=== PATIENT | male | born 1990 | race Two or more races ===

== ENCOUNTER 2022-05-13 10:54 | Inpatient (IN) | payer MEDICAID, OTHER ==
[~2022-05-13] VITALS: Ht 175.3 cm; Wt 63.5 kg
--- NOTE | 2022-05-13 11:05 | NUR ---
YUE SNYDER Escorted by Officer Ch[place] [id number] from [facility] "Abdominal Pain xcouple days". AMBULATORY, PLACED ON BED.
--- NOTE | 2022-05-13 11:15 | NUR ---
[employer] OFFICER AT BEDSIDE
[2022-05-13 11:18] LABS: BASOPHILS % (AUTO) 0.1 % (0.0-2.0); EOSINOPHILS % (AUTO) 0.5 % (0.0-6.0); HEMATOCRIT 50 % (39-51); HEMOGLOBIN 16.4 g/dL (13.5-17.5); LYMPHOCYTES % (AUTO) 9.9 % (20.0-44.0); MEAN CORPUSCULAR HGB CONC 33 g/dl (31.0-36.0); MEAN CORPUSCULAR VOLUME 94 fL (80-96); MONOCYTES # (AUTO) 0.5 K/uL (0.1-1.30); MONOCYTES % (AUTO) 4.7 % (2.0-12.0); NEUTROPHILS # (AUTO) 8.9 K/uL (1.8-8.9); NEUTROPHILS % (AUTO) 84.8 % (43.0-81.0); PLATELET COUNT (AUTO) 285 K/uL (150-450); RED BLOOD CELL COUNT(AUTO) 5.29 MIL/uL (4.5-6.0); WHITE BLOOD COUNT (AUTO) 10.5 K/uL (4.3-11.0)
[2022-05-13 11:31] LABS: CALCIUM, SERUM 9.4 mg/dL (8.5-10.1); CREATININE 0.9 mg/dL (0.6-1.3); POTASSIUM 4.8 mmol/L (3.5-5.1)
[2022-05-13 11:35] LABS: ALBUMIN 4.1 g/dL (3.4-5.0); BILIRUBIN,DIRECT 0.1 mg/dL (0.0-0.2); BILIRUBIN,TOTAL 0.4 mg/dL (0.2-1.0); TOTAL PROTEIN, SERUM 8.4 g/dL (6.4-8.2)
--- NOTE | 2022-05-13 11:52 | NUR ---
URINE SAMPLE SENT TO LAB
[2022-05-13] MEDS ORDERED: IV NS 0.9% 250 ML IV ONE (12:03)
[2022-05-13] MEDS ORDERED: IOHEXOL-300 100 ML VIAL IV ONE (12:03)
--- NOTE | 2022-05-13 12:15 | NUR ---
PATIENT TAKEN TO CT VIA JAY
[2022-05-13 12:55] LABS: BILIRUBIN,URINE NEGATIVE (NEGATIVE); COLOR,URINE YELLOW (YELLOW); LEUKOCYTE ESTERASE ,URINE NEGATIVE (NEGATIVE); NITRITE, URINE NEGATIVE (NEGATIVE); PH,URINE 5.5 (5.0-8.0); PROTEIN,URINE NEGATIVE (NEGATIVE); UGLUCOSE NEGATIVE (NEGATIVE); UROBILINOGEN,URINE 0.2 EU/dL (0.2)
[2022-05-13 13:08] LABS: BACTERIA,URINE Few /HPF (None Seen)
--- NOTE | 2022-05-13 13:09 | NUR ---
SWAB FOR COVID19 SENT TO LAB
--- NOTE | 2022-05-13 13:11 | NUR ---
MOVE SHEET SUBMITTED.
--- NOTE | 2022-05-13 13:25 | NUR ---
CALLED [facility], DR. LAIRD ON-CALL. AWAITING FOR CALL BACK.
[2022-05-13] MEDS ORDERED: IV NS 0.9% 1,000 ML BAG IV ONE (13:30)
[2022-05-13] MEDS ORDERED: DIATR MEGLU/DIATRIZOATE SODIUM 120 ML BOTTLE (GASTROGRAPHIN) ONE (13:46)
--- NOTE | 2022-05-13 14:00 | NUR ---
REPORT GIVEN TO LUCIE LANDA ROOM 320-1 FOR KATY
--- NOTE | 2022-05-13 15:00 | NUR ---
MS RN ADMITTING NOTES RECEIVED PATIENT FROM ER VIA GURNEY ACCOMPANIED BY 2 OFFICERS DUE TO PATIENT CURRENTLY IN CUSTODY. SALINE LOCK IN PLACE CLEAN, INTACT, AND FLUSHING WELL. NO COMPLAINTS OF PAIN OR DISCOMFORT, TOLERATING WELL ON ROOM AIR. SAFETY MEASURES IN PLACE: BED IN LOWEST LOCKED POSITION, SIDE RAILS UP X 2, CALL LIGHT WITHIN REACH. WILL CONTINUE TO MONITOR.
[2022-05-13] MEDS ORDERED: ONDANSETRON HCL/PF 4 MG/2 ML VIAL IVP PRN (15:30)
[2022-05-13] MEDS ORDERED: IV NS 0.9% 1,000 ML IV PRN (15:30)
[2022-05-13] MEDS ORDERED: PEG 3350/NA SULF,BICARB,CL/KCL 4,000 ML BOTTLE PO ONE (15:30)
[2022-05-13] MEDS ORDERED: KETOROLAC TROMETHAMINE INJ 30 MG/ML VIAL IV PRN (15:30)
[2022-05-13 16:00] VITALS: BP 125/93
--- NOTE | 2022-05-13 19:00 | NUR ---
MS RN CLOSING NOTES PATIENT LAYING IN BED, A/O X 4, ABLE TO MAKE NEEDS KNOWN, TOLERATING WELL ON ROOM AIR WITH NO S/S RESPIRATORY DISTRESS. NO COMPLAINTS OF PAIN OR DISCOMFORT AT THIS TIME. IV IN PLACE WITH NS INFUSING @ 75 ML/HR. SAFETY MEASURES IN PLACE: BED IN LOWEST LOCKED POSITION, SIDE RAILS UP X 2, CALL LIGHT WITHIN REACH. ALL NEEDS MET. WILL ENDORSE TO WRITER EDITOR FOR KATY.
--- NOTE | 2022-05-13 19:37 | NUR ---
MS RN OPENING NOTES RECEIVED PATIENT LYING AWAKE IN BED, A/O X3. ACCOMPANIED BY 2 OFFICERS DUE TO PATIENT CURRENTLY IN CUSTODY. PATIENT WAS HANDCUFFED (LEFT) TO BED SIDE RAIL. ON ROOM AIR, BREATHING EVEN AND UNLABORED. NO SIGNS OF RESPIRATORY DISTRESS. IV ACCESS AT [facility] AC #20, INFUSING NS @75ML/HR, INFUSING WELL. NO COMPLAINTS OF PAIN OR DISCOMFORT. SAFETY MEASURES IN PLACE: BED IN LOWEST LOCKED POSITION, SIDE RAILS UP X 2, CALL LIGHT WITHIN REACH. WILL CONTINUE TO MONITOR.
[2022-05-13 20:00] VITALS: BP 108/72
--- NOTE | 2022-05-14 00:33 | NUR ---
RN NOTES PATIENT IS COMPLAINING OF PAIN AT LOWER ABDOMEN, RATED PAIN SCALE 10/10. DESCRIBES PAIN SHARP AND ACHING, GUARDING SITE OF PAIN. GIVEN TORADOL 15MG IV. WILL CONTINUE TO MONITOR.
[2022-05-14 07:00] VITALS: BP 115/87
[2022-05-14 07:39] LABS: BASOPHILS % (AUTO) 0.2 % (0.0-2.0); EOSINOPHILS % (AUTO) 1.5 % (0.0-6.0); HEMATOCRIT 44 % (39-51); LYMPHOCYTES # (AUTO) 1.6 K/uL (0.8-4.8); MEAN CORPUSCULAR HGB CONC 34 g/dl (31.0-36.0); MEAN CORPUSCULAR VOLUME 93 fL (80-96); MONOCYTES # (AUTO) 0.3 K/uL (0.1-1.30); MONOCYTES % (AUTO) 4.4 % (2.0-12.0); NEUTROPHILS # (AUTO) 5.3 K/uL (1.8-8.9); NEUTROPHILS % (AUTO) 71.9 % (43.0-81.0); PLATELET COUNT (AUTO) 278 K/uL (150-450); RED BLOOD CELL COUNT(AUTO) 4.77 MIL/uL (4.5-6.0); WHITE BLOOD COUNT (AUTO) 7.4 K/uL (4.3-11.0)
--- NOTE | 2022-05-14 07:48 | NUR ---
MS RN CLOSING NOTES PATIENT LYING IN BED, A/O X 4, ABLE TO MAKE NEEDS KNOWN, TOLERATING WELL ON ROOM AIR WITH NO S/S RESPIRATORY DISTRESS. NO COMPLAINTS OF PAIN OR DISCOMFORT AT THIS TIME. IV IN PLACE WITH NS INFUSING @ 75 ML/HR. SAFETY MEASURES IN PLACE: BED IN LOWEST LOCKED POSITION, SIDE RAILS UP X 2, CALL LIGHT WITHIN REACH. ALL NEEDS MET. WILL ENDORSE TO LOCKSTITCH COLLAR SETTER FOR KATY.
[2022-05-14 07:58] LABS: CALCIUM, SERUM 8.5 mg/dL (8.5-10.1); CREATININE 0.6 mg/dL (0.6-1.3); MAGNESIUM 2.4 mg/dL (1.8-2.4); PHOSPHORUS 3.2 mg/dL (2.5-4.9); POTASSIUM 4.2 mmol/L (3.5-5.1)
[2022-05-14] MEDS ORDERED: PANTOPRAZOLE 40 MG VIAL IV SCH (09:00)
--- NOTE | 2022-05-14 10:07 | NUR ---
MS RN OPENING NOTES RECEIVED PATIENT LYING AWAKE IN BED, A/O X3. ACCOMPANIED BY 2 OFFICERS DUE TO PATIENT CURRENTLY IN CUSTODY. PATIENT WAS HANDCUFFED (LEFT) TO BED SIDE RAIL. ON ROOM AIR, BREATHING EVEN AND UNLABORED. NO SIGNS OF RESPIRATORY DISTRESS. IV ACCESS AT [facility] AC #20, PATENT AND INTACT. NO COMPLAINTS OF PAIN OR DISCOMFORT AT THIS TIME. DUE MEDICATIONS GIVEN. SAFETY MEASURES IN PLACE: BED IN LOWEST LOCKED POSITION, SIDE RAILS UP X 2, CALL LIGHT WITHIN REACH. WILL CONTINUE PLAN OF CARE.
--- NOTE | 2022-05-14 14:29 | NUR ---
RN NOTES SEEN BY DR. LAIRD, WITH ORDER TO CHANGED DIET FROM CLEAR LIQUID TO REGULAR DIET, INFORMED THAT NO STOOL SOFTENER WAS GIVEN, NO NEW ORDER. PATIENT NOTED WITH 4 SMALL BM, ABLE TO PASS FLATUS, PER DR. LAIRD PATIENT IS OK TO BE DISCHARGED. WILL CONTINUE PLAN OF CARE.
--- NOTE | 2022-05-14 15:26 | NUR ---
[employer] CREW MEMBER NOTES PATIENT DISCHARGE TO POLICE CUSTODY LEFT THE HOSPITAL STABLE AT 1520H.
== END 2022-05-14 15:30 | DRG 392 ==
LOC: ER 11:10 → MED 14:53
DX: K59.00 Constipation, unspecified (principal); Z20.822 Contact with and (suspected) exposure to COVID-19; F15.10 Other stimulant abuse, uncomplicated
CPT/HCPCS: 36415; 74250-TC; 80048-TC; 80076-TC; 81001; 83690-TC; 83735-TC; 84100-TC; 85025-TC; 87081-TC; C9113; C9803; G0378; J1885; J7030; J7050; Q9963; Q9967